=== PATIENT | male | born 1980 | race American Indian/Alaskan Native ===

== ENCOUNTER 2016-05-05 23:36 | Inpatient (IN) | payer SELFPAY ==
[2016-05-06 00:43] LABS: Basophils % (Auto) 0.3 % (0.0-1.8); Eosinophils % (Auto) 0.9 % (0.0-4.3); Hematocrit 42.3 % (35.5-45.6); Hemoglobin 13.8 gm/dl (11.8-15.2); Mean Corpuscular HGB Conc 33 % (32-34); Mean Corpuscular Hemoglobin 27 pg (28-32); Mean Corpuscular Volume 82 fl (84-94); Platelet Count 247 K/mm3 (140-440); Red Blood Count 5.14 M/mm3 (3.65-5.03); Red Cell Distribution Width 14.7 % (13.2-15.2); White Blood Count 10.7 K/mm3 (4.5-11.0)
[2016-05-06 01:50] LABS: Anion Gap 23 mmol/L; BUN/Creatinine Ratio 17.77; Blood Urea Nitrogen 16 mg/dL (9-20); Calcium 8.5 mg/dL (8.4-10.2); Carbon Dioxide 21 mmol/L (22-30); Chloride 104.8 mmol/L (98-107); Glucose 141 mg/dL (75-100); Potassium 3.3 mmol/L (3.6-5.0); Sodium 145 mmol/L (137-145)
[2016-05-06] MEDS ORDERED: DUONEB 0.5 MG-3 MG/3 ML SOLN IH ONE (02:44)
--- NOTE | 2016-05-06 08:31 | Emergency Department Report ---
ED General Adult HPI - General Chief complaint: Upper Respiratory Infection Stated complaint: CHEST PAIN/GIDEON Time Seen by Provider: 05/06/16 08:21 Source: patient Mode of arrival: Ambulatory Limitations: No Limitations - History of Present Illness Initial comments: The patient admits noncompliance with his medical regimen for over a year. He is noted to have a nonischemic cardiomyopathy. He has been previously treated at this facility for heart failure hypoxia type 2 diabetes and bronchitis. He states he has been coughing a lot lately. He does have nocturnal dyspnea and orthopnea. He wasn't aware of any edema. He does not check his blood pressure on his own nor follow-up with a medical provider. He states that he tried to get [employer] insurance but now he is uninsured. He does not complain of chest pain. Prior to my arrival patient was given 2 nebs. He states this was of some benefit. His blood pressure was not addressed prior to my account encounter. I found it to be 200/138. -: days(s) (past last several days), month(s) Severity scale (0 -10): 0 Worsens with: other (exertion and laying down flat) Associated Symptoms: cough Treatments Prior to Arrival: none - Related Data Previous Rx's Medication Instructions Recorded Last Taken Type Hydrocodone/Chlorphen P-Stirex 5 ml PO Q6HR #120 ml 04/09/15 Unknown Rx [HYDROcodone-Chlorphen ER Susp] Aspirin EC [Aspirin Enteric Coated 81 mg PO QDAY #30 tablet. 04/15/15 Unknown Rx TAB] Carvedilol [Coreg] 12.5 mg PO BID #60 tablet 04/15/15 Unknown Rx Hydrochlorothiazide [HCTZ] 25 mg PO QDAY #30 tablet 04/15/15 Unknown Rx Lisinopril [Zestril TAB] 40 mg PO DAILY #60 tablet 04/15/15 Unknown Rx hydrALAZINE [Apresoline TAB] 25 mg PO Q8HR #90 tablet 04/15/15 Unknown Rx metFORMIN [Glucophage] 500 mg PO BID #60 tablet 04/15/15 Unknown Rx Allergies Allergy/AdvReac Type Severity Reaction Status Date / Time No Known Allergies Allergy Verified 05/06/16 00:07 ED Review of Systems ROS: Stated complaint: CHEST PAIN/GIDEON Other details as noted in HPI Constitutional: denies: chills, fever Eyes: denies: eye pain, eye discharge, vision change ENT: denies: ear pain, throat pain Respiratory: cough, shortness of breath, SOB with exertion, wheezing Cardiovascular: denies: chest pain, palpitations Endocrine: no symptoms reported Gastrointestinal: denies: abdominal pain, nausea, diarrhea Genitourinary: denies: urgency, dysuria Musculoskeletal: denies: back pain, joint swelling, arthralgia Skin: denies: rash, lesions Neurological: denies: headache, weakness, paresthesias Psychiatric: denies: anxiety, depression Hematological/Lymphatic: denies: easy bleeding, easy bruising ED Past Medical Hx - Past Medical History Previous Medical History?: Yes Hx Hypertension: Yes Hx Diabetes: Yes Hx COPD: No Hx HIV: No - Surgical History Past Surgical History?: Yes - Social History Smoking Status: Never Smoker Substance Use Type: None - Medications Home Medications: Home Medications Medication Instructions Recorded Confirmed Last Taken Type Hydrocodone/Chlorphen P-Stirex 5 ml PO Q6HR #120 ml 04/09/15 04/12/15 Unknown Rx [HYDROcodone-Chlorphen ER Susp] Aspirin EC [Aspirin Enteric Coated 81 mg PO QDAY #30 tablet. 04/15/15 Unknown Rx TAB] Carvedilol [Coreg] 12.5 mg PO BID #60 tablet 04/15/15 Unknown Rx Hydrochlorothiazide [HCTZ] 25 mg PO QDAY #30 tablet 04/15/15 Unknown Rx Lisinopril [Zestril TAB] 40 mg PO DAILY #60 tablet 04/15/15 Unknown Rx hydrALAZINE [Apresoline TAB] 25 mg PO Q8HR #90 tablet 04/15/15 Unknown Rx metFORMIN [Glucophage] 500 mg PO BID #60 tablet 04/15/15 Unknown Rx ED Physical Exam - General Limitations: No Limitations General appearance: alert, in no apparent distress - Head Head exam: Present: atraumatic, normocephalic - Eye Eye exam: Present: normal appearance, PERRL, EOMI. Absent: scleral icterus - ENT ENT exam: Present: mucous membranes moist - Neck Neck exam: Present: normal inspection. Absent: tenderness, meningismus - Respiratory Respiratory exam: Present: wheezes, rhonchi (bilaterally). Absent: respiratory distress - Cardiovascular Cardiovascular Exam: Present: regular rate, normal rhythm. Absent: systolic murmur, diastolic murmur, rubs, gallop - GI/Abdominal GI/Abdominal exam: Present: soft, normal bowel sounds. Absent: distended, tenderness, guarding, rebound, rigid - Rectal Rectal exam: Present: deferred - Extremities Exam Extremities exam: Present: other (mild pretibial edema) - Back Exam Back exam: Present: normal inspection - Neurological Exam Neurological exam: Present: alert, oriented X3, CN II-XII intact. Absent: motor sensory deficit - Psychiatric Psychiatric exam: Present: normal affect, normal mood - Skin Skin exam: Present: warm, dry, intact, normal color. Absent: rash ED Course Vital Signs 05/06/16 05/06/16 05/06/16 00:08 01:00 01:15 Temperature 98.4 F Pulse Rate 91 H Pulse Rate [ 95 H 85 Anterior] Respiratory 22 Rate Respiratory 19 19 Rate [Anterior] Blood Pressure 194/128 Blood Pressure [Right] O2 Sat by Pulse 99 Oximetry 05/06/16 08:00 Temperature Pulse Rate 86 Pulse Rate [ Anterior] Respiratory 18 Rate Respiratory Rate [Anterior] Blood Pressure Blood Pressure 201/143 [Right] O2 Sat by Pulse 96 Oximetry - Reevaluation(s) Reevaluation #1: The patient was given 2 nebs. He has some mild persistent wheezing. Perhaps he has some reactive airways disease or "cardiac asthma". Not convinced he has an infectious process at all. However he could have a bronchitis as well leading to reactive airways. He doesn't have a pneumonia. His chest x-ray is consistent with CHF. She was given Lasix potassium and labetalol. Further care per Dr. Humphreys and the hospitalist service. He does need some case management services. 05/06/16 09:02 Reevaluation #2: Discussed with Dr. Humphreys. The patient will be admitted to the hospitalist service. 05/06/16 09:06 ED Medical Decision Making - Lab Data Result diagrams: 05/06/16 00:14 05/06/16 00:14 Laboratory Results - last 24 hr 05/06/16 05/06/16 05/06/16 00:14 00:14 03:48 WBC 10.7 RBC 5.14 H Hgb 13.8 Hct 42.3 MCV 82 L MCH 27 L MCHC 33 RDW 14.7 Plt Count 247 Lymph % (Auto) 19.7 Cannon % (Auto) 3.8 Eos % (Auto) 0.9 Baso % (Auto) 0.3 Lymph # 2.1 Cannon # 0.4 Eos # 0.1 Baso # 0.0 Seg Neutrophils % 75.3 H Seg Neutrophils # 8.1 H Sodium 145 Potassium 3.3 L Chloride 104.8 Carbon Dioxide 21 L Anion Gap 23 BUN 16 Creatinine 0.9 Estimated GFR > 60 BUN/Creatinine Ratio 17.77 Glucose 141 H Calcium 8.5 Troponin T < 0.010 < 0.010 05/06/16 06:01 WBC RBC Hgb Hct MCV MCH MCHC RDW Plt Count Lymph % (Auto) Cannon % (Auto) Eos % (Auto) Baso % (Auto) Lymph # Cannon # Eos # Baso # Seg Neutrophils % Seg Neutrophils # Sodium Potassium Chloride Carbon Dioxide Anion Gap BUN Creatinine Estimated GFR BUN/Creatinine Ratio Glucose Calcium Troponin T < 0.010 - EKG Data -: EKG Interpreted by Me EKG shows normal: sinus rhythm Rate: normal - EKG Data Interpretation: nonspecific ST-T wave gisselle (mild), LVH (consider LVH left atrial enlargement. Poor R-wave progression likely secondary to obesity) - Radiology Data interpreted by me: Chest x-ray cardiomegaly with central venous congestion. Fluid in the fissures consistent with CHF. Critical care attestation.: If time is entered above; I have spent that time in minutes in the direct care of this critically ill patient, excluding procedure time. ED Disposition Clinical Impression: Uncontrolled hypertension, Hypokalemia CHF (congestive heart failure) Qualifiers: Congestive heart failure type: combined Congestive heart failure chronicity: acute on chronic Qualified Code(s): I50.43 - Acute on chronic combined systolic (congestive) and diastolic (congestive) heart failure Reactive airways dysfunction syndrome Qualifiers: Asthma severity: mild persistent Asthma complication type: uncomplicated Qualified Code(s): J45.30 - Mild persistent asthma, uncomplicated URI (upper respiratory infection) Qualifiers: URI type: unspecified URI Qualified Code(s): J06.9 - Acute upper respiratory infection, unspecified Disposition: OP ADMITTED IP TO THIS HOSP Is pt being admited?: Yes Does the pt Need Aspirin: Yes Condition: Stable Instructions: Hypertension (ED) Referrals: PRIMARY CARE, [Primary Care Provider] - 3-5 Days Time of Disposition: 09:06
[2016-05-06] MEDS ORDERED: LASIX IV ONE (08:34)
[2016-05-06] MEDS ORDERED: K-DUR PO ONE (08:34)
[2016-05-06] MEDS ORDERED: NORMODYNE IV ONE (08:34)
--- NOTE | 2016-05-06 08:57 | History and Physical Report ---
History of Present Illness Date of examination: 05/06/16 Date of admission: 05-06-16 Chief complaint: sob germain History of present illness: Patient 36-year-old with a diagnoses of nonischemic cardiomyopathy and hypertension congestive heart failure diabetes morbid obesity was recently treated here given blood pressure medications and follow-up. Patient states he did not go to the follow-up in did not get any the medications filled at all. Patient shortly after beginning having shortness of breath dyspnea on exertion and some lower extremity swelling. Patient was noted ED to be short of breath and mild hypoxemia but hemodynamically stable was admitted for CHF exacerbation. Patient has had a recent echocardiogram and stress test as well. We'll bring him for diuresis and aggressive blood pressure control. Past History Past Medical History: diabetes, hypertension. denies: acute AL, atrial fib, arrhythmia, anemia, arthritis, CAD, cancer, COPD, dialysis, DVT, ESRD, GERD, heart failure, hepatitis, HIV/AIDS, hyperthyroidism, hyperlipidemia, hypothyroidism, liver disease, migraines, pulmonary embolism, renal failure, seizures, sarcoidosis Past Surgical History: No surgical history Social history: no significant social history, single, Lives alone, lives with family Family history: hypertension Medications and Allergies Allergies Allergy/AdvReac Type Severity Reaction Status Date / Time No Known Allergies Allergy Verified 05/06/16 00:07 Review of Systems Constitutional: weight gain, weakness, malaise, no weight loss, no fever, no chills, no sweats, no anorexia, no poor appetite, no daytime sleepiness, no other Ears, nose, mouth and throat: no ear pain, no ear discharge, no tinnitis, no decreased hearing, no bleeding gums, no dental pain, no dysphagia, no vertigo Cardiovascular: lightheadedness, shortness of breath, leg edema, decreased exercise tolerance, no chest pain, no orthopnea, no palpitations, no rapid/ irregular heart beat, no edema, no syncope, no dyspnea on exertion, no claudication, no phlebitis, no high blood pressure Respiratory: cough, shortness of breath, dyspnea on exertion, congestion, no cough with sputum, no excessive sputum, no hemoptysis, no wheezing, no pleurisy , no pain, no pain on inspiration, no home oxygen Gastrointestinal: no abdominal pain, no nausea, no diarrhea, no constipation, no change in bowel habits, no hematemesis, no loss of appetite, no early satiety , no heartburn, no indigestion, no jaundice, no dyspepsia/bloating Genitourinary Male: no dysuria, no hematuria, no discharge, no urinary frequency , no urinary hesitancy, no nocturia, no genital sores, no impotence, no testicular pain, no polyuria Musculoskeletal: no neck stiffness, no neck pain, no arm numbness/tingling, no muscle weakness, no muscle cramps, no limitation of motion, no loss of height, no prior amputations, no arthritis Neurological: no paralysis, no weakness, no parathesias, no tingling, no headaches, no change in speech, no memory loss, no changes in smell/taste, no sensory deficit, no burning pain Endocrine: no cold intolerance, no polyphagia, no polyuria, no nocturia Hematologic/Lymphatic: no easy bruising, no easy bleeding, no lymphedema, no thrombophilia Allergic/Immunologic: no allergic rhinitis, no persistent infections Exam - Constitutional Vitals: Temp Pulse Resp BP Pulse Ox 98.4 F 86 18 201/143 96 05/06/16 00:08 05/06/16 08:00 05/06/16 08:00 05/06/16 08:00 05/06/16 08:00 General appearance: Present: no acute distress, well-nourished, other (1. Obesity no acute distress. Patient does have dyspnea on exertion.) - EENT Eyes: Present: PERRL ENT: hearing intact, clear oral mucosa - Neck Neck: Present: supple, normal ROM - Respiratory Respiratory effort: normal Respiratory: bilateral: CTA - Cardiovascular Heart Sounds: Present: S1 & S2. Absent: rub, click - Extremities Extremities: pulses symmetrical, No edema Peripheral Pulses: within normal limits - Abdominal General gastrointestinal: Present: soft, non-tender, non-distended, normal bowel sounds Male genitourinary: Present: normal - Integumentary Integumentary: Present: clear, warm, dry - Musculoskeletal Musculoskeletal: strength equal bilaterally, other (lateral lower extremity edema.) - Psychiatric Psychiatric: appropriate mood/affect, intact judgment & insight - Neurologic Neurologic: CNII-XII intact, moves all extremities Results - Labs CBC & Chem 7: 05/06/16 00:14 05/06/16 00:14 Labs: Laboratory Last Values WBC 10.7 K/mm3 (4.5-11.0) 05/06/16 00:14 RBC 5.14 M/mm3 (3.65-5.03) H 05/06/16 00:14 Hgb 13.8 gm/dl (11.8-15.2) 05/06/16 00:14 Hct 42.3 % (35.5-45.6) 05/06/16 00:14 MCV 82 fl (84-94) L 05/06/16 00:14 MCH 27 pg (28-32) L 05/06/16 00:14 MCHC 33 % (32-34) 05/06/16 00:14 RDW 14.7 % (13.2-15.2) 05/06/16 00:14 Plt Count 247 K/mm3 (140-440) 05/06/16 00:14 Lymph % (Auto) 19.7 % (13.4-35.0) 05/06/16 00:14 Teller % (Auto) 3.8 % (0.0-7.3) 05/06/16 00:14 Eos % (Auto) 0.9 % (0.0-4.3) 05/06/16 00:14 Baso % (Auto) 0.3 % (0.0-1.8) 05/06/16 00:14 Lymph # 2.1 K/mm3 (1.2-5.4) 05/06/16 00:14 Teller # 0.4 K/mm3 (0.0-0.8) 05/06/16 00:14 Eos # 0.1 K/mm3 (0.0-0.4) 05/06/16 00:14 Baso # 0.0 K/mm3 (0.0-0.1) 05/06/16 00:14 Seg Neutrophils % 75.3 % (40.0-70.0) H 05/06/16 00:14 Seg Neutrophils # 8.1 K/mm3 (1.8-7.7) H 05/06/16 00:14 Sodium 145 mmol/L (137-145) 05/06/16 00:14 Potassium 3.3 mmol/L (3.6-5.0) L 05/06/16 00:14 Chloride 104.8 mmol/L (98-107) 05/06/16 00:14 Carbon Dioxide 21 mmol/L (22-30) L 05/06/16 00:14 Anion Gap 23 mmol/L 05/06/16 00:14 BUN 16 mg/dL (9-20) 05/06/16 00:14 Creatinine 0.9 mg/dL (0.8-1.5) 05/06/16 00:14 Estimated GFR > 60 ml/min 05/06/16 00:14 BUN/Creatinine Ratio 17.77 % 05/06/16 00:14 Glucose 141 mg/dL (75-100) H 05/06/16 00:14 Calcium 8.5 mg/dL (8.4-10.2) 05/06/16 00:14 Troponin T < 0.010 ng/mL (0.00-0.029) 05/06/16 06:01 - Imaging and Cardiology Chest x-ray: image reviewed Assessment and Plan Advance Directives: Yes VTE prophylaxis?: Chemical Plan of care discussed with patient/family: Yes - Patient Problems (1) CHF (congestive heart failure) Current Visit: Yes Status: Acute Qualifiers: Congestive heart failure type: combined Congestive heart failure chronicity : acute on chronic Qualified Code(s): I50.43 - Acute on chronic combined systolic (congestive) and diastolic (congestive) heart failure Plan to address problem: Patient not in extensive CHF. I think this is mostly uncontrolled blood pressure is causing his symptoms. Patient's blood pressure was 190/110 1:15. (2) Hypokalemia Current Visit: Yes Status: Acute Plan to address problem: We'll correct with by mouth potassium. (3) URI (upper respiratory infection) Current Visit: Yes Status: Acute Qualifiers: URI type: unspecified URI Pharyngitis/tonsillitis etiology: P Airway obstruction: A Streptococcal tonsillitis recurrence: S Qualified Code(s): J06.9 - Acute upper respiratory infection, unspecified Plan to address problem: Treat with empiric anabiotic's. Upon discharge will add azithromycin. (4) Uncontrolled hypertension Current Visit: Yes Status: Acute Plan to address problem: Will need to be more aggressively patient's blood pressure medications. Especially what compliance. I have just restarted the medications that he was discharged with. Patient did not take them at all therefore I did not know whether this will be effective at not but will treat with IV hydralazine when necessary to keep patient cover. (5) Diabetes mellitus Current Visit: No Status: Acute Qualifiers: Diabetes mellitus type: type 2 Diabetes mellitus complication status: without complication Diabetes mellitus complication detail: D Diabetic retinopathy severity: D Proliferative retinopathy type: P Diabetes mellitus macular edema: D Diabetes mellitus intermediate insulin use: D Laterality: L Chronic kidney disease stage: C Qualified Code(s): E11.9 - Type 2 diabetes mellitus without complications Plan to address problem: Stable fairly well-controlled we'll continue Accu-Cheks and use sliding scale insulin.
[2016-05-06] MEDS ORDERED: ZOFRAN IV PRN (09:00)
[2016-05-06] MEDS ORDERED: MORPHINE IV PRN (09:00)
[2016-05-06] MEDS ORDERED: TYLENOL PO PRN (09:00)
[2016-05-06] MEDS ORDERED: XANAX PO PRN (09:00)
[2016-05-06] MEDS ORDERED: MILK OF MAGNESIA PO PRN (09:00)
[2016-05-06] MEDS ORDERED: D50W (25GM) IV PRN (09:00)
[2016-05-06] MEDS ORDERED: DULCOLAX PR PRN (09:00)
[2016-05-06] MEDS ORDERED: BABY ASPIRIN PO ONE (09:08)
[2016-05-06 09:15] LABS: Alanine Aminotransferase 16 units/L (7-56); Albumin 3.8 g/dL (3.9-5); Albumin/Globulin Ratio 1.2 %; Alkaline Phosphatase 65 units/L (35-129); Bilirubin,Total 0.8 mg/dL (0.1-1.2); Total Protein 7.1 g/dL (6.3-8.2)
[2016-05-06 09:18] LABS: Bilirubin,Direct < 0.2 mg/dL (0-0.2)
--- NOTE | 2016-05-06 09:43 | XRay Report ---
ROUTINE CHEST, TWO VIEWS: HISTORY: Cough, chest pain. Borderline heart size and pulmonary vascularity are stable since 04/12/15. The lungs are clear. No evidence for pneumonia, CHF or pneumothorax. Mild thoracic spondylosis is noted. IMPRESSION: Borderline heart size and pulmonary vessels. No CHF.
--- NOTE | 2016-05-06 09:52 | Admit Criteria Form ---
Admission Criteria Documentation: HYPERTENSION Clinical Indications for Admission to Inpatient Care ( Place "X" for any and all applicable criteria): Admission is indicated for ANY ONE of the following(1)(2)(3)(4): [ ]I. Hypertensive emergency, with evidence of acute and progressing target organ disease as indicated by ANY ONE of the following: [ ]a) Hypertensive encephalopathy (eg, confusion, altered mental status) [ ]b) Cerebral infarction [ ]c) Intracranial hemorrhage [ ]d) Myocardial ischemia or infarction [ ]e) Pulmonary edema [ ]f) Aortic dissection [ ]g) Seizure [ ]h) Acute renal insufficiency [ ]i) Papilledema [ ]j) Microangiopathic hemolytic anemia [ ]II. Adrenergic crisis (eg, severe hypertension due to pheochromocytoma crisis, cocaine or amphetamine intoxication, or clonidine withdrawal) [X]III. Severe hypertension (SBP greater than 180 mmHg or DBP greater than 110 mmHg or greater than the 95th percentile for age, gender, and height in pediatric patients) that cannot be controlled (eg, to SBP less than 160 mmHg and DBP less than 100 mmHg in adults) by treatment with oral medication in emergency department or observation care Extended stay beyond goal length of stay may be needed for(11)(12)(13): [ ]a) Persistent hypertensive encephalopathy [ ]b) Continuation of pulmonary edema [ ]c) Recurring or persistent severe hypertension [ ]d) Target organ damage (eg, angina, stroke, aortic dissection) [ ]e) Associated renal insufficiency The original [employer] content created by [employer] has been revised. The portions of the content which have been revised are identified through the use of italic text or in bold, and [facility] has neither reviewed nor approved the modified material. All other unmodified content is copyright [facility] [employer]. Please see references footnoted in the original [facility] [employer] edition 2016 Admission Criteria Met: Yes
[2016-05-06 09:57] LABS: Urine Drugs of Abuse Note Disclamer
[2016-05-06 10:08] LABS: INR 1.26 (0.87-1.13); Partial Thromboplastin Time 27.3 Sec. (24.2-36.6)
[2016-05-06] MEDS: ZESTRIL PO SCH (10:21)
[2016-05-06] MEDS: HCTZ PO SCH (10:21)
[2016-05-06 10:30] LABS: Bilirubin,Urine NEG (Negative); Blood,Urine NEG (Negative); Ketones,Urine NEG (Negative); Leukocyte Esterase,Urine TR (Negative); Mucus,Urine FEW /HPF; Nitrite,Urine POS (Negative); Protein,Urine <15 mg/dL mg/dL (Negative); RBC,Urine < 1.0 /HPF (0.0-6.0); Urobilinogen,Urine < 2.0 mg/dL (<2.0)
[2016-05-06] MEDS: K-DUR PO SCH (11:20)
[2016-05-06] MEDS: GLUCOPHAGE PO SCH ×2 (11:20→22:08)
[2016-05-06] MEDS: LOVENOX SUB-Q SCH (11:21)
[2016-05-06] MEDS: HALFPRIN EC PO SCH (11:21)
[2016-05-06] MEDS: APRESOLINE PO SCH ×2 (14:27→22:07)
[2016-05-06] MEDS: COREG PO SCH ×2 (14:28→22:07)
[2016-05-06] MEDS: LASIX IV SCH (17:46)
[2016-05-07] MEDS: APRESOLINE PO SCH ×3 (05:25→21:59)
[2016-05-07] MEDS: LASIX IV SCH ×2 (05:25→17:23)
[2016-05-07] MEDS: LOVENOX SUB-Q SCH (09:58)
[2016-05-07] MEDS: HALFPRIN EC PO SCH (09:58)
[2016-05-07] MEDS: K-DUR PO SCH (09:59)
[2016-05-07] MEDS: COREG PO SCH ×2 (09:59→22:00)
[2016-05-07] MEDS: HCTZ PO SCH (10:00)
[2016-05-07] MEDS: GLUCOPHAGE PO SCH ×2 (10:00→21:59)
[2016-05-07] MEDS: ZESTRIL PO SCH (10:01)
--- NOTE | 2016-05-07 16:24 | Progress Note ---
Assessment and Plan - Patient Problems (1) CHF (congestive heart failure) Current Visit: Yes Status: Acute Qualifiers: Congestive heart failure type: combined Congestive heart failure chronicity : acute on chronic Qualified Code(s): I50.43 - Acute on chronic combined systolic (congestive) and diastolic (congestive) heart failure Plan to address problem: No evidence of congestive heart failure on exam. Patient's chest clear. Trace edema has resolved. We'll back off of Lasix. (2) Hypokalemia Current Visit: Yes Status: Acute Plan to address problem: Recheck BMP a.m. replace with 40 of potassium. (3) URI (upper respiratory infection) Current Visit: Yes Status: Acute Qualifiers: URI type: unspecified URI Pharyngitis/tonsillitis etiology: P Airway obstruction: A Streptococcal tonsillitis recurrence: S Qualified Code(s): J06.9 - Acute upper respiratory infection, unspecified Plan to address problem: She is cough most likely secondary to upper respiratory tract infection we'll treat with by mouth azithromycin. (4) Uncontrolled hypertension Current Visit: Yes Status: Acute Plan to address problem: Limited hypertension much better since starting patient on labetalol 200 mg 1 tab by mouth twice a day and also losartan 100 mg by mouth daily. We'll discharge with these medications. (5) Diabetes mellitus Current Visit: No Status: Acute Qualifiers: Diabetes mellitus type: type 2 Diabetes mellitus complication status: without complication Diabetes mellitus complication detail: D Diabetic retinopathy severity: D Proliferative retinopathy type: P Diabetes mellitus macular edema: D Diabetes mellitus terminal operations manager insulin use: D Laterality: L Chronic kidney disease stage: C Qualified Code(s): E11.9 - Type 2 diabetes mellitus without complications Plan to address problem: Stable fairly well-controlled we'll continue Accu-Cheks and use sliding scale insulin. History Interval history: feels better today able to get up and walk around without much difficulty like yesterday. day has some coughing fever over p.m. Hospitalist Physical - Constitutional Vitals: Temp Pulse Resp BP Pulse Ox 98.5 F 81 20 143/85 97 05/07/16 08:00 05/07/16 10:19 05/07/16 10:19 05/07/16 10:01 05/07/16 10:19 General appearance: Present: no acute distress, well-nourished, other (1. Obesity no acute distress. Patient does have dyspnea on exertion.) - EENT Eyes: Present: PERRL, EOM intact ENT: hearing intact, clear oral mucosa, dentition normal - Neck Neck: Present: supple, normal ROM. Absent: enlarged thyroid, masses or JVD, cervical LAD, carotid bruits - Respiratory Respiratory effort: normal Respiratory: bilateral: CTA - Cardiovascular Rhythm: regular Heart Sounds: Present: S1 & S2 - Extremities Extremities: no ischemia, pulses intact, pulses symmetrical, normal temperature , normal color, Full ROM Extremity abnormal: edema, other (edema almost completely resolved) Peripheral Pulses: within normal limits - Abdominal General gastrointestinal: soft, non-tender, non-distended, other (obese) - Integumentary Integumentary: Present: clear, warm, dry, normal turgor. Absent: erythema, jaundice, rash, clammy, pale, decreased turgor - Psychiatric Psychiatric: appropriate mood/affect, intact judgment & insight, cooperative - Neurologic Neurologic: CNII-XII intact, moves all extremities Results - Labs CBC & Chem 7: 05/06/16 00:14 05/06/16 00:14 Labs: Laboratory Last Values WBC 10.7 K/mm3 (4.5-11.0) 05/06/16 00:14 RBC 5.14 M/mm3 (3.65-5.03) H 05/06/16 00:14 Hgb 13.8 gm/dl (11.8-15.2) 05/06/16 00:14 Hct 42.3 % (35.5-45.6) 05/06/16 00:14 MCV 82 fl (84-94) L 05/06/16 00:14 MCH 27 pg (28-32) L 05/06/16 00:14 MCHC 33 % (32-34) 05/06/16 00:14 RDW 14.7 % (13.2-15.2) 05/06/16 00:14 Plt Count 247 K/mm3 (140-440) 05/06/16 00:14 Lymph % (Auto) 19.7 % (13.4-35.0) 05/06/16 00:14 [place] % (Auto) 3.8 % (0.0-7.3) 05/06/16 00:14 Eos % (Auto) 0.9 % (0.0-4.3) 05/06/16 00:14 Baso % (Auto) 0.3 % (0.0-1.8) 05/06/16 00:14 Lymph # 2.1 K/mm3 (1.2-5.4) 05/06/16 00:14 [place] # 0.4 K/mm3 (0.0-0.8) 05/06/16 00:14 Eos # 0.1 K/mm3 (0.0-0.4) 05/06/16 00:14 Baso # 0.0 K/mm3 (0.0-0.1) 05/06/16 00:14 Seg Neutrophils % 75.3 % (40.0-70.0) H 05/06/16 00:14 Seg Neutrophils # 8.1 K/mm3 (1.8-7.7) H 05/06/16 00:14 PT 15.7 Sec. (12.2-14.9) H 05/06/16 08:38 INR 1.26 (0.87-1.13) H 05/06/16 08:38 APTT 27.3 Sec. (24.2-36.6) 05/06/16 08:38 Sodium 145 mmol/L (137-145) 05/06/16 00:14 Potassium 3.3 mmol/L (3.6-5.0) L 05/06/16 00:14 Chloride 104.8 mmol/L (98-107) 05/06/16 00:14 Carbon Dioxide 21 mmol/L (22-30) L 05/06/16 00:14 Anion Gap 23 mmol/L 05/06/16 00:14 BUN 16 mg/dL (9-20) 05/06/16 00:14 Creatinine 0.9 mg/dL (0.8-1.5) 05/06/16 00:14 Estimated GFR > 60 ml/min 05/06/16 00:14 BUN/Creatinine Ratio 17.77 % 05/06/16 00:14 Glucose 141 mg/dL (75-100) H 05/06/16 00:14 POC Glucose 95 (70-105) 05/06/16 22:03 Calcium 8.5 mg/dL (8.4-10.2) 05/06/16 00:14 Total Bilirubin 0.8 mg/dL (0.1-1.2) 05/06/16 08:38 Direct Bilirubin < 0.2 mg/dL (0-0.2) 05/06/16 08:38 AST 13 units/L (5-40) 05/06/16 08:38 ALT 16 units/L (7-56) 05/06/16 08:38 Alkaline Phosphatase 65 units/L (35-129) 05/06/16 08:38 Troponin T < 0.010 ng/mL (0.00-0.029) 05/06/16 06:01 NT-Pro-B Natriuret Pep 572.9 pg/mL (0-450) H 05/06/16 08:38 Total Protein 7.1 g/dL (6.3-8.2) 05/06/16 08:38 Albumin 3.8 g/dL (3.9-5) L 05/06/16 08:38 Albumin/Globulin Ratio 1.2 % 05/06/16 08:38 Urine Color Yellow (Yellow) 05/06/16 08:27 Urine Turbidity Slightly-cloudy (Clear) 05/06/16 08:27 Urine pH 6.0 (5.0-7.0) 05/06/16 08:27 Ur Specific [place] 1.019 (1.003-1.030) 05/06/16 08:27 Urine Protein <15 mg/dl mg/dL (Negative) 05/06/16 08:27 Urine Glucose (UA) Neg mg/dL (Negative) 05/06/16 08:27 Urine Ketones Neg mg/dL (Negative) 05/06/16 08:27 Urine Blood Neg (Negative) 05/06/16 08:27 Urine Nitrite Pos (Negative) 05/06/16 08:27 Urine Bilirubin Neg (Negative) 05/06/16 08:27 Urine Urobilinogen < 2.0 mg/dL (<2.0) 05/06/16 08:27 Ur Leukocyte Esterase Tr (Negative) 05/06/16 08:27 Urine WBC (Auto) 8.0 /HPF (0.0-6.0) H 05/06/16 08:27 Urine RBC (Auto) < 1.0 /HPF (0.0-6.0) 05/06/16 08:27 U Epithel Cells (Auto) 1.0 /HPF (0-13.0) 05/06/16 08:27 Urine Mucus Few /HPF 05/06/16 08:27 Urine Opiates Screen Presumptive negative 05/06/16 08:27 Urine Methadone Screen Presumptive negative 05/06/16 08:27 Ur Barbiturates Screen Presumptive negative 05/06/16 08:27 Ur Phencyclidine Scrn Presumptive negative 05/06/16 08:27 Ur Amphetamines Screen Presumptive negative 05/06/16 08:27 U Benzodiazepines Scrn Presumptive negative 05/06/16 08:27 Urine Cocaine Screen Presumptive negative 05/06/16 08:27 U Marijuana (THC) Screen Presumptive negative 05/06/16 08:27 Drugs of Abuse Note Disclamer 05/06/16 08:27 - Imaging and Cardiology Chest x-ray: image reviewed
[2016-05-08] MEDS: LASIX IV SCH (05:34)
[2016-05-08] MEDS: APRESOLINE PO SCH ×2 (05:34→15:07)
[2016-05-08 06:32] LABS: Anion Gap 15 mmol/L; Blood Urea Nitrogen 17 mg/dL (9-20); Calcium 8.4 mg/dL (8.4-10.2); Carbon Dioxide 26 mmol/L (22-30); Glucose 106 mg/dL (75-100); Potassium 3.4 mmol/L (3.6-5.0); Sodium 138 mmol/L (137-145)
[2016-05-08] MEDS: LOVENOX SUB-Q SCH (09:54)
[2016-05-08] MEDS: COREG PO SCH (09:55)
[2016-05-08] MEDS: HCTZ PO SCH (09:56)
[2016-05-08] MEDS: HALFPRIN EC PO SCH (09:56)
[2016-05-08] MEDS: ZESTRIL PO SCH (09:56)
[2016-05-08] MEDS: K-DUR PO SCH (09:56)
[2016-05-08] MEDS: GLUCOPHAGE PO SCH (09:57)
[2016-05-08] MEDS ORDERED: ROBITUSSIN PO PRN (14:00)
[2016-05-08 15:07] VITALS: BP 164/98
--- NOTE | 2016-05-08 15:29 | Discharge Summary ---
Providers - Providers Date of Admission: 05/06/16 09:00 Date of discharge: 05/08/16 Attending physician: TONE MENCHACA none Primary care physician: MOLDER CLOSED MOLDS Hospitalization Condition: Good Hospital course: Patient 36-year-old male presented with some shortness of breath and cough. Initially thought patient may have had a CHF exacerbation since he did have a history of CHF. However did not show any evidence of active heart failure. Patient did however have malignant hypertension/hypertensive emergency. With blood pressures to 240/138. Patient was placed on Cardene drip and started on antihypertensives medications. Patient blood pressure did well symptoms resolved. Hospital course was complicated by bronchitis she was given meds to control this. antibioticss. Patient was educated on staying compliant with his medications. Patient states he cannot get medications because of cost and no job. Disposition: STILL A PATIENT - Discharge Diagnoses (1) CHF (congestive heart failure) Status: Acute Qualifiers: Congestive heart failure type: combined Congestive heart failure chronicity : acute on chronic Qualified Code(s): I50.43 - Acute on chronic combined systolic (congestive) and diastolic (congestive) heart failure Comment: Patient no active failure still be discharged on beta cameron MATIAS inhibitor would not need diaphoretic at this time. She was scheduled to get echo and did not get a repeat echo. Patient is stable enough and not having active CHF for he can go home today and follow echo as outpatient. He has establish ejection fraction of 45%. (2) Hypokalemia Status: Acute Comment: Treated resolved. (3) URI (upper respiratory infection) Status: Acute Qualifiers: URI type: unspecified URI Pharyngitis/tonsillitis etiology: P Airway obstruction: A Streptococcal tonsillitis recurrence: S Qualified Code(s): J06.9 - Acute upper respiratory infection, unspecified Comment: She will upper rest or tract infection we'll discharge home azithromycin and decongested and cough suppressant. (4) Uncontrolled hypertension Status: Acute Comment: She with hypertensive emergency started patient on labetalol 200 twice a day as well as amlodipine 10 mg by mouth daily patient had optimal control after 2 days. (5) Diabetes mellitus Status: Acute Qualifiers: Diabetes mellitus type: type 2 Diabetes mellitus complication status: without complication Diabetes mellitus complication detail: D Diabetic retinopathy severity: D Proliferative retinopathy type: P Diabetes mellitus macular edema: D Diabetes mellitus group home insulin use: D Laterality: L Chronic kidney disease stage: C Qualified Code(s): E11.9 - Type 2 diabetes mellitus without complications Core Measure Documentation - Palliative Care Palliative Care/ Comfort Measures: Not Applicable - Core Measures Any of the following diagnoses?: heart failure - Heart Failure Discharge Requirements MATIAS/ARB for LVSD if EF <40%: Yes Beta cameron at discharge: Yes Exam - Constitutional Vitals: Temp Pulse Resp BP Pulse Ox 98.0 F 95 H 20 164/98 97 05/08/16 12:00 05/08/16 15:07 05/08/16 12:00 05/08/16 15:07 05/08/16 12:00 General appearance: Present: no acute distress, well-nourished - EENT Eyes: Present: PERRL ENT: hearing intact, clear oral mucosa - Neck Neck: Present: supple, normal ROM - Respiratory Respiratory effort: normal Respiratory: bilateral: CTA - Cardiovascular Heart Sounds: Present: S1 & S2. Absent: rub, click - Extremities Extremities: pulses symmetrical, No edema Peripheral Pulses: within normal limits - Abdominal General gastrointestinal: Present: soft, non-tender, non-distended, normal bowel sounds Male genitourinary: Present: normal - Integumentary Integumentary: Present: clear, warm, dry - Musculoskeletal Musculoskeletal: gait normal, strength equal bilaterally - Psychiatric Psychiatric: appropriate mood/affect, intact judgment & insight - Neurologic Neurologic: CNII-XII intact, moves all extremities Plan Activity: no restrictions Weight Bearing Status: Full Weight Bearing Diet: low fat Follow up with: PRIMARY CARE, [Primary Care Provider] - 3-5 Days Prescriptions: ALPRAZolam [Xanax TAB] 0.125 mg PO Q8H PRN #60 tablet PRN Reason: Agitation Aspirin EC [Aspirin Enteric Coated TAB] 81 mg PO QDAY #30 tablet Carvedilol [Coreg] 12.5 mg PO BID #60 tablet Enoxaparin [Lovenox] 40 mg PO QDAY #30 syringe guaiFENesin [Robitussin] 200 mg PO Q6H PRN #10 oral.liqd PRN Reason: Cough hydrALAZINE [Apresoline TAB] 25 mg PO Q8HR #90 tablet Hydrochlorothiazide [HCTZ] 25 mg PO QDAY #30 tablet Lisinopril [Zestril TAB] 40 mg PO DAILY #30 tablet metFORMIN [Glucophage] 500 mg PO BID #60 tablet Potassium Chloride [K-Dur] 40 meq PO QDAY #30 tablet
== END 2016-05-08 16:43 | disposition home or self-care (01) | DRG 292 ==
LOC: ED 23:36 → 4A 05-06 09:00
PROVIDERS: ADMIT Internal Medicine; ATTEND Internal Medicine
DX: I11.0 Hypertensive heart disease with heart failure (principal); Z68.41 Body mass index [BMI] 40.0-44.9, adult; I16.1 Hypertensive emergency; I50.43 Acute on chronic combined systolic (congestive) and diastolic (congestive) heart failure; I42.9 Cardiomyopathy, unspecified; Z91.19 Patient's noncompliance with other medical treatment and regimen; E11.9 Type 2 diabetes mellitus without complications; E87.6 Hypokalemia; J45.30 Mild persistent asthma, uncomplicated; J06.9 Acute upper respiratory infection, unspecified; E66.01 Morbid (severe) obesity due to excess calories; Z82.49 Family history of ischemic heart disease and other diseases of the circulatory system
CPT/HCPCS: 36415; 71020; 80048; 80074; 80307; 81001; 82962; 83880; 84484; 85025; 85610; 85730; 93005; 93010; 94640; 96374; 96375; J1650; J1940

== ENCOUNTER 2016-06-20 10:49 | Emergency (ER) | payer SELFPAY ==
[2016-06-20] MEDS ORDERED: ZESTRIL PO ONE (11:22)
[2016-06-20] MEDS ORDERED: HCTZ PO ONE (11:23)
[2016-06-20 12:51] VITALS: BP 195/125
--- NOTE | 2016-06-20 21:41 | Emergency Department Report ---
Entered by MARCO BLANCA, acting as scribe for BRIGIDA HILLS NP. ED Medical Clearance HPI - General Chief complaint: Medical Clearance Stated complaint: MED REFILL Time Seen by Provider: 06/20/16 11:54 Source: patient Mode of arrival: Ambulatory - History of Present Illness Initial comments: 36 year old male with a PMHx of HTN, CHF, IDDM, and high cholesterol presents to the ED c/o HTN medications refill that began 1 week ago. Patient states he ran out of Lisinopril 40 mg, Hydrochlorot 25 mg, and Carvedilol 12.5 mg 1 week ago. Denies chest pain, nausea, vomiting, headache, SOB, fever, and chills. Patient's blood pressure was elevated to 198/127 in triage. Reports not checking blood pressure regularly. Denies having a regular PCP and insurance. Notes he went to [facility] to have blood pressure medications refilled, but was denied refills and told he could be seen in July 2016. NKDA. RESENDIZ Complaint: other (high blood pressure medication, Lisinopril 40 mg, refill) Onset/Timin -: week(s) Reason for Medical Clearance: other (ran out of high blood pressure medication, Lisinopril 40 mg) Place: home Alledged Intoxication: No Compliant with Home Medications: No Traumatic Symptoms: denies traumatic injury Associated Symptoms: denies other symptoms. denies: chest pain, shortness of breath, palpitations, diaphoresis, fever/chills, headaches, nausea/vomiting, rash, weakness, other (vision changes) Treatments Prior to Arrival: none Home medications: Previous Rx's Medication Instructions Recorded Last Taken Type ALPRAZolam [Xanax TAB] 0.125 mg PO Q8H PRN #60 tablet 05/08/16 Unknown Rx Aspirin EC [Aspirin Enteric Coated 81 mg PO QDAY #30 tablet 05/08/16 Unknown Rx TAB] Carvedilol [Coreg] 12.5 mg PO BID #60 tablet 05/08/16 Unknown Rx Enoxaparin [Lovenox] 40 mg PO QDAY #30 syringe 05/08/16 Unknown Rx Hydrochlorothiazide [HCTZ] 25 mg PO QDAY #30 tablet 05/08/16 Unknown Rx Lisinopril [Zestril TAB] 40 mg PO DAILY #30 tablet 05/08/16 Unknown Rx Potassium Chloride [K-Dur] 40 meq PO QDAY #30 tablet 05/08/16 Unknown Rx guaiFENesin [Robitussin] 200 mg PO Q6H PRN #10 oral.liqd 05/08/16 Unknown Rx hydrALAZINE [Apresoline TAB] 25 mg PO Q8HR #90 tablet 05/08/16 Unknown Rx metFORMIN [Glucophage] 500 mg PO BID #60 tablet 05/08/16 Unknown Rx Carvedilol [Coreg] 12.5 mg PO BID #30 tablet 06/20/16 Unknown Rx Hydrochlorothiazide [HCTZ] 25 mg PO QDAY #30 tablet 06/20/16 Unknown Rx Lisinopril [Zestril TAB] 40 mg PO QDAY #30 tablet 06/20/16 Unknown Rx Allergies/Adverse reactions: Allergies Allergy/AdvReac Type Severity Reaction Status Date / Time No Known Allergies Allergy Verified 05/06/16 00:07 ED Review of Systems Comment: All other systems reviewed and negative Constitutional: denies: chills, diaphoresis, fever, weakness, other (tingling) Eyes: denies: vision change ENT: denies: ear pain, throat pain Respiratory: denies: cough, shortness of breath Cardiovascular: denies: chest pain, palpitations Endocrine: no symptoms reported Gastrointestinal: denies: abdominal pain, nausea, vomiting Genitourinary: denies: urgency, frequency Musculoskeletal: denies: back pain Skin: denies: rash Neurological: denies: headache, numbness ED Past Medical Hx - Past Medical History Previous Medical History?: Yes Hx Hypertension: Yes Hx Congestive Heart Failure: Yes Hx Diabetes: Yes Hx Asthma: No Hx COPD: No Hx HIV: No Additional medical history: HYPERLIPEDEMIA, - Surgical History Past Surgical History?: No - Social History Smoking Status: Never Smoker - Medications Home Medications: Home Medications Medication Instructions Recorded Confirmed Last Taken Type ALPRAZolam [Xanax TAB] 0.125 mg PO Q8H PRN #60 tablet 05/08/16 Unknown Rx Aspirin EC [Aspirin Enteric Coated 81 mg PO QDAY #30 tablet 05/08/16 Unknown Rx TAB] Carvedilol [Coreg] 12.5 mg PO BID #60 tablet 05/08/16 Unknown Rx Enoxaparin [Lovenox] 40 mg PO QDAY #30 syringe 05/08/16 Unknown Rx Hydrochlorothiazide [HCTZ] 25 mg PO QDAY #30 tablet 05/08/16 Unknown Rx Lisinopril [Zestril TAB] 40 mg PO DAILY #30 tablet 05/08/16 Unknown Rx Potassium Chloride [K-Dur] 40 meq PO QDAY #30 tablet 05/08/16 Unknown Rx guaiFENesin [Robitussin] 200 mg PO Q6H PRN #10 oral.liqd 05/08/16 Unknown Rx hydrALAZINE [Apresoline TAB] 25 mg PO Q8HR #90 tablet 05/08/16 Unknown Rx metFORMIN [Glucophage] 500 mg PO BID #60 tablet 05/08/16 Unknown Rx Carvedilol [Coreg] 12.5 mg PO BID #30 tablet 06/20/16 Unknown Rx Hydrochlorothiazide [HCTZ] 25 mg PO QDAY #30 tablet 06/20/16 Unknown Rx Lisinopril [Zestril TAB] 40 mg PO QDAY #30 tablet 06/20/16 Unknown Rx ED Physical Exam - General Limitations: No Limitations General appearance: alert, in no apparent distress - Head Head exam: Present: atraumatic, normocephalic - Eye Eye exam: Present: normal appearance, PERRL, EOMI - ENT ENT exam: Present: normal exam, mucous membranes moist - Neck Neck exam: Present: normal inspection, full ROM - Respiratory Respiratory exam: Present: normal lung sounds bilaterally. Absent: respiratory distress - Cardiovascular Cardiovascular Exam: Present: regular rate, normal rhythm. Absent: systolic murmur, diastolic murmur, rubs, gallop - GI/Abdominal GI/Abdominal exam: Present: soft, normal bowel sounds - Extremities Exam Extremities exam: Present: normal inspection, full ROM - Back Exam Back exam: Present: normal inspection, full ROM - Neurological Exam Neurological exam: Present: alert, oriented X3, CN II-XII intact, normal gait - Psychiatric Psychiatric exam: Present: normal affect, normal mood - Skin Skin exam: Present: warm, dry, intact. Absent: rash ED Course Vital Signs 06/20/16 06/20/16 06/20/16 11:05 11:31 12:49 Temperature 98 F Pulse Rate 75 75 86 Respiratory 18 20 Rate Blood Pressure 198/127 198/127 Blood Pressure 195/125 [Left] O2 Sat by Pulse 97 96 Oximetry - Reevaluation(s) Reevaluation #1: 06/20/16 13:08 Dr. Asencio aware of patient and b/p at the time of d/c with no additional treatment. Agrees to d/c on refill of b/p medication and follow-up with pcp/ it technician within 24 hours. ED Medical Decision Making - Medical Decision Making Ed course: 36-year-old male that presents with a refill for his blood pressure medication 1- I instructed the importance of follow-up with her primary care doctor/ it technician for routine checkup of blood pressure and treatment. Also notify the patient the importance of keeping a low-sodium/carbohydrate diet for reducible blood pressure. 2- patient was discharged with lisinopril 40 mg, HCTZ 25 mg, carvedilol 12.5 mg. These medications are the patient's current medication for blood pressure. I instructed the patient to take blood pressure measuring every day and observe symptoms of hypotension. 3- at the time of discharge the patient does not seem toxic or ill in appearance. No signs of distress noted. Patient agrees to discharge treatment and plan of care for PCP/it technician. ED Disposition Clinical Impression: Medication refill Disposition: DISCHARGED TO HOME OR SELFCARE Is pt being admited?: No Does the pt Need Aspirin: No Condition: Stable Instructions: Hypertension (ED) Additional Instructions: Please follow-up with your primary care doctor/it technician as well as possible. Monitor blood pressure every day and observed signs and symptoms of low blood pressure or high blood pressure. Prescriptions: Carvedilol [Coreg] 12.5 mg PO BID #30 tablet Hydrochlorothiazide [HCTZ] 25 mg PO QDAY #30 tablet Lisinopril [Zestril TAB] 40 mg PO QDAY #30 tablet Referrals: PRIMARY MD LIV [Primary Care Provider] - 3-5 Days MIGUEL CRAIG MD [Referring] - 3-5 Days LUZ TELLEZ MD [Referring] - 3-5 Days TRACY MCCORMACK MD [Referring] - 3-5 Days USAMA GODDARD MD [Referring] - 3-5 Days [facility] [Outside] - 3-5 Days [facility] [Outside] - 3-5 Days FALGUNI REED MD [Staff Physician] - [place] Forms: Work/School Release Form(ED) This documentation as recorded by the EVANGELIST olguin JASMINE,accurately reflects the service I personally performed and the decisions made by me,BRIGIDA HILLS, JOSÉ MIGUEL.
== END 2016-06-20 13:04 | disposition home or self-care (01) ==
LOC: ED 10:49
DX: Z76.0 Encounter for issue of repeat prescription (principal); I10 Essential (primary) hypertension; I50.9 Heart failure, unspecified
CPT/HCPCS: 99282